=== PATIENT | male | born 2005 | race Caucasian/White ===

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

== ENCOUNTER → 2024-03-25 19:00 | Outpatient (BNV) | payer OTHER, SELFPAY | PROVIDERS: PCP Internal Medicine; Visit Provider Internal Medicine | DX: G47.33 Obstructive sleep apnea (adult) (pediatric) (principal) | CPT/HCPCS: 95810 ==

== ENCOUNTER → 2024-03-25 19:30 | Outpatient (REF) | payer OTHER, SELFPAY | LOC: HO.SL 19:30 | PROVIDERS: PCP Internal Medicine; Visit Provider Otolaryngology | DX: G47.33 Obstructive sleep apnea (adult) (pediatric) (principal); R06.83 Snoring | CPT/HCPCS: 95810 ==

== ENCOUNTER 2024-04-22 09:38 | Outpatient (REF) | payer OTHER, SELFPAY ==
[2024-04-22 13:16] LABS: MANUAL DIFF FLAG NO
[2024-04-22 13:34] LABS: Basophils Percent Auto 0.7 % (0-2); Eosinophils Absolute Auto 0.1 X10*3/uL (0.0-0.4); Eosinophils Percent Auto 1.8 % (0-4); Hematocrit 45.2 % (42.0-52.0); Imm Gran Abs Auto 0.01 X10*3/uL (0.00-0.03); Imm Gran Pct Auto 0.2 % (0.0-0.4); Lymphocytes Absolute Auto 1.7 X10*3/uL (1.2-4.9); Lymphocytes Percent Auto 28.4 % (20-40); Mean Corpuscular HGB Conc 33.2 g/dl (31.0-36.0); Mean Corpuscular Hemoglobin 28.5 pg (27.0-33.0); Mean Corpuscular Volume 85.8 fL (80.0-98.0); Mean Platelet Volume 10.6 fL (9.4-12.4); Monocytes Absolute Auto 0.5 X10*3/uL (0.1-1.2); Monocytes Percent Auto 7.9 % (2-11); Neutrophils Absolute Auto 3.7 x10*3/uL (2.0-8.3); Platelet Count 230 X10*3/uL (160-400); Red Blood Count 5.27 X10*6/uL (4.60-5.80); White Blood Count 6.1 X10*3/uL (4.8-10.8)
[2024-04-22 13:48] LABS: Anion Gap 14 (12-20); Blood Urea Nitrogen 11 mg/dL (9-16); Calcium 9.7 mg/dL (8.4-10.2); Carbon Dioxide 25 mmol/L (22-29); Chloride 106 mmol/L (96-108); Cholesterol 202 mg/dL (<200); Estimated Glomerular Filt Rate > 60; Glucose Random 91 mg/dL (60-115); HDL Cholesterol 35 mg/dL (>40); LDL Cholesterol Calculated 98 mg/dL (<100); Potassium 3.8 mmol/L (3.3-5.1); Sodium 141 mmol/L (135-145); Triglycerides 346 mg/dL (<150)
== END 2024-04-22 09:39 | disposition home or self-care (01) ==
LOC: HO.HMGCLDS 09:38
PROVIDERS: PCP Internal Medicine; Visit Provider Internal Medicine
DX: Z00.00 Encounter for general adult medical examination without abnormal findings (principal); E78.00 Pure hypercholesterolemia, unspecified
CPT/HCPCS: 36415; 80048; 80061; 85025

== ENCOUNTER 2025-08-06 12:27 | Outpatient (AMB) | payer OTHER, SELFPAY ==
--- OUTSIDE RECORDS SUMMARY | 2025-08-06 12:30 | XMS_ITS | Clinical Summary ---
Author Organization [facility] Address [address] [place] [id number] Phone Care Team Providers Care Certified First Assistant Name Role Phone Pablo Bai MD Primary Care Provider Peyton maynard Allergies No known active allergies Medications Calcium Carb-Cholecalci ferol (CALCIUM-VITAMI N D) 500-200 MG-UNIT per tablet Take 1 tablet by mouth 2 (two) times a day with meals. Active Magnesium 400 MG tablet Take by mouth. Activ e folic acid 1 MG tablet Take 1 mg by mouth daily. Active FLUoxetine (PROZAC) 10 MG capsuleIndicati ons:Anxiety Take 1 capsule (10 mg total) by mouth every morning. 30 capsule 9 Active Additional Information Patient taking differently: 20 mgOral Every morning, Reported on 12/08/2019 BP WASH 7 % liquid APPLY 1 DOSE TOPICALLY EVERY MORNING 4 9 Active lisdexamfetamin e 30 MG capsule Take 15 mg by mouth every morning. Active tretinoin 0.1 % cream Apply topically nightly. Active Active Problems Problem Noted Date Diagnosed Date Acne vulgaris 11/18/2018 Anxiety 11/12/2017 ADHD (attention deficit hype ractivity disorder), combined type 04/24/2017 Myopia, bilateral 10/18/2016 Pure hypercholesterolemia 10/12/2015 Immunizations Immunization Administration Dates Next Due DTaP 07/21/2009, 6,03/27/2005,01/24,2004 HPV Vaccine 9 Valent 04/22/2017,10/18/2016 Hep A, ped/adol 05/21/2018,11/12/2017 Hep B, ped/adol 03/27/2005,01/24/2005,2004 Hib (PRP-T) 01/14/2006, 5,03/15/2005,01/10 IPV 07/21/2009, 5,01/24/2005,11/01 Influenza 10/27/2007 Influenza, injectable, quadrivalent 10/01,10/11/2014,09/07/2013,09/01,07/31/2010,08/26/2009 Influenza, injectable, quadr ivalent, preservative free 09/01/2019,09/15/2018,10/21/2017,10/18,08/06/2011,09/06/2008 Influenza, injectable, triva lent, preservative free 09/25/2006,10/16/2005,09/19/2005 Influenza, intradermal, quad rivalent, preservative free 08/20/2020 MMR 07/19/2008,10/16/2005 Meningococcal Conj (Menactra) MCV4P 10/12/2015 Pneumococcal Conjugate 01/14/2006,2004,07/04/2005,05/28 Tdap 10/12/2015 Varicella 05/21/2018,07/19/2008,05/28/2005 Family History * Patient is adopted Relation Name Status Comments Father Alive Mother Alive Social History Tobacco Use Types Packs/Day Years Used Date Smoking Tobacco: Never Smokeless Tobacco: Never Sex and Gender Information Value Date Recorded Sex Assigned at Male 12/08/2019 3:10 PM EST Legal Sex Male 6:09 PM EDT Gender Identity Male 12/08/2019 3:10 PM EST Sexual Orientation Straight 12/08/2019 3: 10 PM EST Last Filed Vital Signs Vital Sign Reading Time Taken Comments Blood Pressure 114/68 12/08/2019 2:30 PM EST Pulse 106 07/23/2011 12:00 AM EDT Temperature 36.8 C (98.2 F) 09/01/2019 3:18 PM EDT Respiratory Rate - - Oxygen Saturation 99% 07/23/2011 12:00 AM EDT Inhaled Oxygen Concentration - - Weight 73.7 kg (162 lb 6.4 oz) 12/08/2019 2:30 P M EST Height 163.8 cm (5' 4.5 ) 12/08/2019 2:30 PM EST Body Mass Index 27.45 12/08/2019 2:30 PM EST Plan of Treatment Health Maintenance Due Date Last Done Comments Men B Vaccine (1 of 2 - Standard) 2020 Influenza Vaccines (#1) 2025 08/20/20 20, 09/01/2019, 09/15/2018, Additional history exists COVID-19 Vaccine ( - season) 2025 DTaP,Tdap,and Td Vaccines (7 - Td or Tdap) 10/12/2025 10/12/2015, 07/21/2009, 01/14/2006, Additional history exists Hepatitis B Vaccines Completed 03/27/2005, 01/24/2005, 2004 HIB Vaccines Completed 01/14/2006, 05/01, 03/15/2005, Additional history exists Pneumococcal Vaccine Completed 01/14/2006, 10/16/2005, 07/04/2005, Additional history exists MMR Vaccines Completed 07/19/2008, 10/16/2005 IPV Vaccines Completed 07/21/2009, 03/02, 01/24/2005, Additional history exists Meningococcal Vaccine Aged Out 10/12/2015 No jose nilsa eligible based on patient's age to complete this topic HPV Vaccines Completed 04/22/2017, 10/18/2016 Hepatitis A Vaccines Completed 05/21/2018, 11/12/20 17 Varicella Vaccines Completed 05/21/2018, 0 07/19/2008, 05/28/2005 Insurance BLUE BENEFIT ADMIN [facility] Care Teams Certified First Assistant Relationship Specialty Start Date End Date Pablo Bai MD PCP - General Pediatrics 04/10/19 jayda Turner 11/18/18
--- OUTSIDE RECORDS SUMMARY | 2025-08-06 12:30 | XMS_ITS | Encounter Summary ---
Author Organization [facility] Address [address] [place] [address] Phone Care Team Providers Care Bicycle Racer Name Role Phone Pablo Bai MD Primary Care Provider Peyton maynard Encounter Details Date Type Department Care Team (Late st Contact Info) Description 01/25/2010 Documentation [facility] [address] [place] [address] Family Medicine, Physician [address] [place] [address] Social History Tobacco Use Types Packs/Day Years Used Date Smoking Tobacco: Never Assessed Sex and Gender Information Value Date Recorded Sex Assigned at Male 12/08/2019 3:10 PM EST Legal Sex Male 6:09 PM EDT Gender Identity Male 12/08/2019 3:10 PM EST Sexual Orientation Straight 12/08/2019 3: 10 PM EST documented as of this encounter Plan of Treatment Not on file documented as of this encounter Visit Diagnoses Not on filedocumented in this encounter Care Teams Bicycle Racer Relationship Specialty Start Date End Date Pablo Bai MD PCP - General Pediatrics 04/10/19 jayda Turner 11/18/18 documented as of this encounter
--- OUTSIDE RECORDS SUMMARY | 2025-08-06 12:30 | XMS_ITS | Encounter Summary ---
Author Organization [facility] Address [address] [place] [address] Phone Care Team Providers Care Planishing Hammer Operator Name Role Phone Pablo Bai MD Primary Care Provider Peyton maynard Encounter Details Date Type Department Care Team (Late st Contact Info) Description 04/19/2018 Conversion Encounter [facility] [address] [address] Social History Tobacco Use Types Packs/Day Years [...] on filedocumented in this encounter Care Teams Planishing Hammer Operator Relationship Specialty Start Date End Date Pablo Bai MD PCP - General Pediatrics 04/10/19 jayda Turner 11/18/18 documented as of this encounter
--- OUTSIDE RECORDS SUMMARY | 2025-08-06 12:30 | XMS_ITS | Encounter Summary ---
Author Organization [facility] Address [address] [place] [address] Phone Care Team Providers Care Poultry Killer Name Role Phone Pablo Bai MD Primary Care Provider Peyton maynard Encounter Details Date Type Department Care Team (Late st Contact Info) Description 01/12/2010 Documentation [facility] [place] [facility] [address] [place] [address] Family Medicine, Physician [address] [place] [address] Social History Tobacco Use Types Packs/Day Years [...] on filedocumented in this encounter Care Teams Poultry Killer Relationship Specialty Start Date End Date Pablo Bai MD PCP - General Pediatrics 04/10/19 jayda Turner 11/18/18 documented as of this encounter
--- NOTE | 2025-08-06 12:41 | AM.OFFWIN_ITS ---
Intake Vital Signs 08/06/25 12:42 Height 5 ft 5 in Weight 204 lb BMI 33.9 BP 100/68 Blood Pressure Location Lt brachial Position Sitting Pulse 90 Pulse Source Pulse Oximeter Temp 98.1 F Temp Source Oral Pulse Oximetry (%) 98 Oxygen Delivery Method Room Air Intake Visit Reasons: LINKER UP- Nose bleeding Intake Note: Pt is here today c/o frequent nose bleed: Last episodes last night Patient Tobacco Use Status: Never used Tobacco Allergies No Known Allergies Allergy (Verified 08/06/25 12:42) HPI HPI Comments History of Present Illness Details History of Present Illness - The patient is a 20-year-old male pres enting with recurrent epistaxis. - Epistaxis onset less than one week ago ; frequency and duration increased compared to past episodes. - Bilateral spontaneous nosebleeds with perception of bright red blood anteriorly and in the throat posteriorly. occurs bilat. Lasts only a few min. treated w/ pressure to the nose. - History of lifelong epistaxis; nasal c auterization performed > year ago. - Flonase use was advised to prevent rec urrence; discontinued after job loss - No headaches, ASA, NSAID, anticoag us e. Denies head trauma. - Normal blood pressure with no history of hypertension. - Has ENT appt 08/2025 Review of Systems - HEENT: Reports epistaxis; denies heada ches or trauma to the nose or head. - Cardiovascular: Denies use of aspirin or anticoagulants. - General: Reports spontaneous bleeding; denies additional spontaneous bleeding or blood disorders. Physical Exam General: Well developed, well nourished, in no acute distress. Appears stated age. Head: Normocephalic, atraumatic. Eyes: Pupils are equal, round and reactive to light and accommodation. Con junctivae are clear. Nares: external nose WNL, R nares clotted blood, L nares clot noted anteriorly internal aspect. Turbinate WNL. Pharynx: clear Lungs: Speaking in full sentences Psych: Mood and affect appropriate. Discussion Notes During the consultation, I discussed with the patient the ongoing issue of epistaxis. I advised him to restart the use of Flonase, as it may aid in reducing the frequency and severity of the nosebleeds by compressing the vasculature. I explained the benefits of using ice to manage acute bleeding, emphasizing it as a temporary measure for relief. We explored management options, including the use of a nosebleed clip available on [employer], and I recommended considering a referral to an ear, nose, and throat specialist for further evaluation, particularly since previous cauterization only provided temporary relief. I also advised scheduling an ENT appointment, encouraging the patient to proactively call for cancellations to expedite the process due to the extended wait times. Additionally, I spoke about the importance of maintaining an upright posture during a nosebleed to prevent nausea and the potential risk of vomiting. Patient was given time to ask questions. All questions were answered to their satisfaction. Assessment and Plan 1. Epistaxis - Resume Fluticasone nasal spray. - Use ice for acute management. - Consider nosebleed clip. - Expedite follow-up with ENT. 2. History of nasal cauterization - Noted prior nasal cauterization; ENT e valuation indicated. Patient Instructions - Restart using Flonase nasal spray as d irected. - Use ice during active nosebleeds for r elief. - Try nosebleed clips found online for h ome use. - Remain upright during nosebleeds to av oid nausea. - Follow up with the ENT in August, and call for appointment cancellations if possible. Consent Patient was informed and verbally consented to the use of an ambient scribe for clinic note documentation during this visit. [facility] Medical History Anxiety Depression Self-harm Social History Alcohol intake: never Patient Tobacco Use Status: Never used Tobacco Physical Exam Vital Signs: Last Vital Signs Temp 98.1 F 08/06/25 12:42 Pulse 90 08/06/25 12:42 BP 100/68 08/06/25 12:42 Pulse Ox 98 08/06/25 12:42 Oxygen Delivery Method Room Air 08/06/25 12:42 BMI result Body Mass Index 33.9 Assessment & Plan Assessment & Plan (1) Epistaxis not due to trauma: Code(s): R04.0 - Epistaxis Plan . Medications: Discontinued cephalexin Discontinued Reason: Patient no longer taking 500 mg PO BID 7 days 14 caps 0RF mupirocin 2% Discontinued Reason: Patient no longer taking 1 appl topical BID 7 days 15 grams 0RF Coding Level of Care Code Est Pt Level 3 (77623) Diagnoses Epistaxis not due to trauma R04.0
[2025-08-06 12:42] VITALS: BP 100/68; PULSE 90; TEMP 36.7; O2SAT 98; BMI 33.9
== END 2025-08-06 13:03 | disposition home or self-care (01) ==
LOC: HO.HMCWIC 12:27
PROVIDERS: Visit Provider Nurse Practitioner Family
DX: R04.0 Epistaxis (principal)